=== PATIENT | female | born 1945 | race Caucasian/White ===

== ENCOUNTER 2017-12-10 08:32 | Day surgery (SDC) | payer MEDICARE, OTHER ==
[~2017-12-10 08:32] MED LIST: Dexamethasone 4 MG/ML SDV ONE; Lactated Ringers 0 ML ONE; Lidocaine 1% 0 ML ONE; Lidocaine 1%/Sod Bicarbonate in NS 8.4% 1 ML Syringe IDERM PRN; Midazolam 1 MG/ML 2 ML SDV ONE; Ondansetron 4 MG/2 ML SDV ONE; Propofol 200 MG/20 ML SDV ONE; Rocuronium 50 MG/5 ML Vial ONE; Sodium Chloride 0.9% 10 ML Syringe FLUSH PRN; ceFAZolin 1 GM Vial ONE; fentaNYL 250 MCG/5 ML SDV ONE
[2017-12-10] MEDS: Lactated Ringers 1,000 ML IV SCH ×2 (09:15→12:53)
--- NOTE | 2017-12-10 09:27 | PCM.PREANE ---
Preanesthetic Assessment - Anesthesia/Transfusion/Family Hx Anesthesia History: Prior Anesthesia Without Reaction Family History of Anesthesia Reaction: No Transfusion History: No Prior Transfusion(s) - Review of Systems General: No Symptoms Pulmonary: No Symptoms Cardiovascular: No Symptoms Gastrointestinal: No Symptoms Neurological: No Symptoms Other: Reports: None - Physical Assessment NPO Status Date: 12/09/17 NPO Status Time: 00:00 Pulse: 58 O2 Sat by Pulse Oximetry: 95 Respiratory Rate: 16 Blood Pressure: 152/58 Temperature: 36.9 C Height: 1.57 m Weight: 72.439 kg ASA Class: 2 Mental Status: Alert & Oriented x3 Dentition: Reports: Dentures (top) Thyro-Mental Finger Breadths: 3 Mouth Opening Finger Breadths: 3 ROM/Head Extension: Full Lungs: Clear to Auscultation, Normal Respiratory Effort Cardiovascular: Regular Rate, Regular Rhythm, No Murmurs - Lab Values: Laboratory Last Values WBC 6.09 K/mm3 (3.98-10.04) 12/09/17 10:24 RBC 4.81 M/mm3 (3.98-5.22) 12/09/17 10:24 Hgb 14.3 gm/L (11.2-15.7) 12/09/17 10:24 Hct 43.0 % (34.1-44.9) 12/09/17 10:24 MCV 89.4 fl (79.4-94.8) 12/09/17 10:24 MCH 29.7 pg (25.6-32.2) 12/09/17 10:24 MCHC 33.3 g/dl (32.2-35.5) 12/09/17 10:24 RDW Std Deviation 46.0 fL (36.4-46.3) 12/09/17 10:24 Plt Count 245 K/mm3 (182-369) 12/09/17 10:24 MPV 10.6 fl (9.4-12.3) 12/09/17 10:24 Neut % (Auto) 53.4 % (34.0-71.1) 12/09/17 10:24 Lymph % (Auto) 33.5 % (19.3-51.7) 12/09/17 10:24 [place] % (Auto) 10.2 % (4.7-12.5) 12/09/17 10:24 Eos % (Auto) 2.0 (0.7-5.8) 12/09/17 10:24 Baso % (Auto) 0.7 % (0.1-1.2) 12/09/17 10:24 Neut # (Auto) 3.26 K/mm3 (1.56-6.13) 12/09/17 10:24 Lymph # (Auto) 2.04 K/mm3 (1.18-3.74) 12/09/17 10:24 [place] # (Auto) 0.62 K/mm3 (0.24-0.36) H 12/09/17 10:24 Eos # (Auto) 0.12 K/mm3 (0.04-0.36) 12/09/17 10:24 Baso # (Auto) 0.04 K/mm3 (0.01-0.08) 12/09/17 10:24 Sodium 139 mEq/L (136-145) 12/09/17 10:24 Potassium 3.8 mEq/L (3.5-5.1) 12/09/17 10:24 Chloride 102 mEq/L (98-107) 12/09/17 10:24 Carbon Dioxide 30 mEq/L (21-32) 12/09/17 10:24 Anion Gap 10.8 (5-15) 12/09/17 10:24 BUN 21 mg/dL (7-18) H 12/09/17 10:24 Creatinine 1.1 mg/dL (0.55-1.02) H 12/09/17 10:24 Est Cr Clr Drug Dosing TNP 12/09/17 10:24 Estimated GFR (MDRD) 49 mL/min (>60) 12/09/17 10:24 BUN/Creatinine Ratio 19.1 (14-18) H 12/09/17 10:24 Glucose 102 mg/dL (83-115) 12/09/17 10:24 Calcium 9.6 mg/dL (8.5-10.1) 12/09/17 10:24 Total Bilirubin 0.6 mg/dL (0.2-1.0) 12/09/17 10:24 AST 22 U/L (15-37) 12/09/17 10:24 ALT 25 U/L (14-59) 12/09/17 10:24 Alkaline Phosphatase 93 U/L (46-116) 12/09/17 10:24 Total Protein 7.9 g/dl (6.4-8.2) 12/09/17 10:24 Albumin 3.9 g/dl (3.4-5.0) 12/09/17 10:24 Globulin 4.0 gm/dL 12/09/17 10:24 Albumin/Globulin Ratio 1.0 (1-2) 12/09/17 10:24 Urine Color Yellow (Yellow) 12/09/17 10:24 Urine Appearance Clear (Clear) 12/09/17 10:24 Urine pH 6.0 (5.0-8.0) 12/09/17 10:24 Ur Specific Hydes > or = 1.030 (1.005-1.030) 12/09/17 10:24 Urine Protein Negative (Negative) 12/09/17 10:24 Urine Glucose (UA) Negative (Negative) 12/09/17 10:24 Urine Ketones Negative (Negative) 12/09/17 10:24 Urine Occult Blood 1+ (Negative) H 12/09/17 10:24 Urine Nitrite Positive (Negative) H 12/09/17 10:24 Urine Bilirubin Negative (Negative) 12/09/17 10:24 Urine Urobilinogen 0.2 (0.2-1.0) 12/09/17 10:24 Ur Leukocyte Esterase Negative (Negative) 12/09/17 10:24 Ur Random Creatinine 135.8 mg/dL (30.0-125.0) H 12/09/17 10:24 Blood Type A NEGATIVE 12/09/17 10:24 Gel Antibody Screen Negative 12/09/17 10:24 - Imaging/EKG Impressions: on chart NSR with PVC's - Blood Blood Available: Yes Product(s) Available: PRBC - Acknowledgements Anesthesia Type Planned: General Anesthesia Pt an Appropriate Candidate for the Planned Anesthesia: Yes Alternatives and Risks of Anesthesia Discussed w Pt/Guardian: Yes Pt/Guardian Understands and Agrees with Anesthesia Plan: Yes PreAnesthesia Questionnaire - SUBSTANCE USE Smoking Status *Q: Former Smoker Tobacco Use Within Last Twelve Months: No Second Hand Smoke Exposure: No Days Per Week of Alcohol Use: 1 Number of Drinks Per Day: 0 Total Drinks Per Week: 0 Recreational Drug Use History: No - CURRENT (IN HOUSE) MEDS Current Meds: Current Medications Lactated Ringer's (Ringers, Lactated) 1,000 mls @ 125 mls/hr IV ASDIRECTED SAMINA Lidocaine/Sodium Bicarbonate (Buffered Lidocaine 1% In Ns 8.4%) 0.25 ml IDERM ONETIME PRN PRN Reason: Prior to IV Start Sodium Chloride (Saline Flush) 10 ml FLUSH ASDIRECTED PRN PRN Reason: Keep Vein Open Discontinued Medications Cefazolin Sodium (Ancef) Confirm Administered Dose 2 gm .ROUTE .STK-MED ONE Stop: 12/10/17 07:34 Dexamethasone (Dexamethasone) Confirm Administered Dose 4 mg .ROUTE .STK-MED ONE Stop: 12/10/17 07:34 Fentanyl (Sublimaze) Confirm Administered Dose 250 mcg .ROUTE .STK-MED ONE Stop: 12/10/17 07:34 Lactated Ringer's (Ringers, Lactated) Confirm Administered Dose 1,000 mls @ as directed .ROUTE .STK-MED ONE Stop: 12/10/17 07:34 Lidocaine HCl (Xylocaine-Mpf 1%) Confirm Administered Dose 4 mls @ as directed .ROUTE .STK-MED ONE Stop: 12/10/17 07:34 Midazolam HCl (Versed 1 Mg/Ml) Confirm Administered Dose 2 mg .ROUTE .STK-MED ONE Stop: 12/10/17 07:34 Ondansetron HCl (Zofran) Confirm Administered Dose 4 mg .ROUTE .STK-MED ONE Stop: 12/10/17 07:34 Propofol (Diprivan 20 Ml) Confirm Administered Dose 400 mg .ROUTE .STK-MED ONE Stop: 12/10/17 07:34 Rocuronium [place] (Zemuron) Confirm Administered Dose 50 mg .ROUTE .STK-MED ONE Stop: 12/10/17 07:34
[2017-12-10] MEDS ORDERED: Ondansetron 4 MG/2 ML SDV ONE (09:49)
[2017-12-10] MEDS ORDERED: Rocuronium 50 MG/5 ML Vial ONE (09:49)
[2017-12-10] MEDS ORDERED: Propofol 200 MG/20 ML SDV ONE (09:49)
[2017-12-10] MEDS ORDERED: Ketorolac 30 MG/ML SDV ONE (09:50)
[2017-12-10] MEDS ORDERED: Lidocaine 1% 4 ML ONE (09:50)
[2017-12-10] MEDS ORDERED: fentaNYL 250 MCG/5 ML SDV ONE (09:50)
[2017-12-10] MEDS ORDERED: Dexamethasone 4 MG/ML 5 ML MDV ONE (09:51)
[2017-12-10] MEDS ORDERED: diphenhydrAMINE 50 MG/ML SDV ONE (09:51)
[2017-12-10] MEDS ORDERED: ceFAZolin 1 GM Vial ONE (09:56)
[2017-12-10] MEDS ORDERED: Sodium Chloride 0.9% 50 ML SDV ONE (10:49)
[2017-12-10] MEDS ORDERED: Lidocaine 1% with EPINEPHrine 1:100,000 20 ML MDV ONE (10:49)
[2017-12-10] MEDS ORDERED: HYDROmorphone 0.5 MG/0.5 ML Syringe ONE ×2 (11:58)
[2017-12-10] MEDS ORDERED: Acetaminophen/oxyCODONE 325-5 MG Tab PO PRN (12:29)
[2017-12-10] MEDS ORDERED: Ondansetron 4 MG/2 ML SDV IVPUSH PRN (12:29)
[2017-12-10] MEDS ORDERED: Ketorolac 30 MG/ML SDV IVPUSH SCH (12:30)
--- NOTE | 2017-12-10 12:34 | PCM.OPNOTE ---
- General Post-Op/Procedure Note Date of Surgery/Procedure: 12/10/17 Operative Procedure(s): Total vaginal hysterectomy with bilateral salpingectomy and right oophorectomy Findings: Grade 3 uterine prolapse. Grade 1 cystocele, grade 1 rectocele. Atrophic streak right ovary. Left ovary not seen.. Postmenopausal appearing fallopian tubes bilaterally. Pre Op Diagnosis: Grade 3 uterine prolapse Post-Op Diagnosis: Same Anesthesia Technique: General ET Tube Other Anesthesia Type: Lidocaine quarter percent with [id number] mL total Primary Surgeon: Zheng Gimenez Secondary Surgeon: Tony Wilkinson Anesthesia Provider: Buddy Buenrostro Street Cleaner: Regina Xiong Reason Street Cleaner Was Necessary: Retraction, assistance, patient safety, quality of care. Role of Street Cleaner: Same Fluid Replacement, Intraop: 1,500 EBL in mLs: 10 Complications: None Condition: Good Free Text/Narrative:: Surgery duration: 26 minutes Procedure: The patient was placed in supine position on the operating table. General endotracheal anesthesia was accomplished. After positioning, and adequate prep and drape, the procedure was then performed. Sterile speculum was placed in the vagina and cervix was visualized. Cervix was injected with lidocaine quarter percent with [id number] mL used. A full circumference incision was made in the cervical epithelium. The bladder was pushed well back off cervix. Posterior cul-de-sac was then entered sharply without problems. Left uterosacral was crossclamped with a Enseal vessel closure system. The left uterosacral and then the right uterosacral ligament pedicles were developed using the Enseal system. The anterior cul-de-sac was then entered without problems and the uterine vasculature, cardinal ligament and broad ligament then developed using Enseal vessel closure system. The uterus was inverted at this time and upper broad ligament fallopian tube pedicles were crossclamped with Zheng clamps. Specimen was totally removed. Both these pedicles were then secured left 1 with a with a Zheng stitch of #1 Vicryl and right 1 with Enseal vessel closure system.. Left and right fallopian tube was normal in appearance.. Using Enseal vessel closure system each of the tubes was then removed and sent with the specimen. The Enseal vessel closure system was used to remove the right ovary. Left ovary was not visualized. The patient was found to be hemostatically intact at this time. Vaginal cuff was then closed from right to left side with a running locked suture of 0 Monocryl. Patient was returned to supine position and awakened from general endotracheal anesthesia. She tolerated the procedure was then left the operating room in satisfactory condition.
[2017-12-10] MEDS ORDERED: fentaNYL 100 MCG/2 ML SDV IVPUSH PRN (12:50)
[2017-12-10] MEDS ORDERED: HYDROmorphone 0.5 MG/0.5 ML Syringe IVPUSH PRN (12:50)
--- NOTE | 2017-12-10 12:52 | PCM.POSTAN ---
POST ANESTHESIA ASSESSMENT - MENTAL STATUS Mental Status: Alert, Oriented - VITAL SIGNS Pulse Rate: 66 SaO2: 96 Resp Rate: 12 Blood Pressure: 126/54 Temperature: 36.9 C - RESPIRATORY Respiratory Status: Respiratory Rate WNL, Airway Patent, O2 Saturation Stable, Supplemental Oxygen - CARDIOVASCULAR CV Status: Pulse Rate WNL, Blood Pressure Stable - GASTROINTESTINAL GI Status: No Symptoms - PAIN Pain Score: 1 - POST OP HYDRATION Hydration Status: Adequate & Stable - OBSERVATIONS Free Text/Narrative:: no anesthesia complications noted
--- NOTE | 2017-12-10 16:57 | PCM48HPAN ---
Post Anesthesia Note - EVALUATION WITHIN 48HRS OF ANESTHETIC Vital Signs in Normal Range: Yes Patient Participated in Evaluation: Yes Respiratory Function Stable: Yes Airway Patent: Yes Cardiovascular Function Stable: Yes Hydration Status Stable: Yes Pain Control Satisfactory: Yes Nausea and Vomiting Control Satisfactory: Yes Mental Status Recovered: Yes
== END 2017-12-10 15:05 | disposition home or self-care (01) ==
LOC: JD.SDS 08:32
PROVIDERS: ATTEND Obstetrics & Gynecology
DX: N81.3 Complete uterovaginal prolapse (principal); N88.0 Leukoplakia of cervix uteri; E78.00 Pure hypercholesterolemia, unspecified; I10 Essential (primary) hypertension; Z79.82 Long term (current) use of aspirin; Z79.899 Other long term (current) drug therapy; Z87.891 Personal history of nicotine dependence
CPT/HCPCS: 36415; 58262; 80053; 81003; 82570; 85025; 86850; 86900; 86901; A9270; J0690; J1100; J1170; J1200; J1885; J2405; J2704; J3010; J7120; 00944; J2001; J2250

== ENCOUNTER 2019-09-09 11:14 | Emergency (ER) | payer MEDICARE, OTHER ==
[2019-09-09] MEDS ORDERED: Aspirin 81 MG Tab.Chew PO ONE (11:42)
[2019-09-09] MEDS ORDERED: Dextrose 5%-0.9% NaCl 1,000 ML IV SCH (11:45)
--- NOTE | 2019-09-09 11:48 | EDM.PDOC ---
ED HPI GENERAL MEDICAL PROBLEM - General Chief Complaint: Chest Pain Stated Complaint: CHEST PRESSURE Time Seen by Provider: 09/09/19 11:42 Source of Information: Reports: Patient History Limitations: Reports: No Limitations - History of Present Illness INITIAL COMMENTS - FREE TEXT/NARRATIVE: 74-year-old female presents to the ED for evaluation of central chest discomfort that seems to occasionally radiate up into the anterior neck and perhaps through to her mid back between the shoulder blades. She noticed this first yesterday afternoon and it seemed to persist through the night and is still present this morning. Burping seems to help relieve the discomfort. She does not usually suffer from heartburn or have to take Tums or Rolaids although she has had reflux in the past. She has no known heart disease. She is a never smoker. She has known hypercholesterolemia and is on simvastatin 40 mg once daily. Lisinopril 40 mg once daily and hydrochlorothiazide 25 mg once daily she does have hypertension controlled with carvedilol 6.25 mg twice daily. Pressure discomfort is not worse on exertion or walking. She does not think there is any problems swallowing this morning. But she has not had much to eat yet. Onset: Gradual Onset Date: 09/08/19 Onset Time: 15:00 Duration: Hour(s):, Constant, Recurring Location: Reports: Chest (Chest pressure) Quality: Reports: Pressure ( discomfort.). Denies: Burning, Sharp, Stabbing Severity: Mild Improves with: Reports: None Worsens with: Reports: None Context: Denies: Activity, Exercise, Lifting, Sick Contact, Trauma, Other Associated Symptoms: Reports: No Other Symptoms, Chest Pain (Central chest discomfort). Denies: Confusion, Cough, cough w sputum, Diaphoresis, Fever/Chills, Headaches, Loss of Appetite, Malaise, Nausea/Vomiting, Rash, Seizure, Shortness of Breath, Syncope, Weakness Treatments DIRECTOR OF SECURITY: Reports: Other (see below) (She tried some Pepto-Bismol with no relief.) Mid-Sternal Chest Pain Score (Numeric/FACES): 4 - Related Data Allergies Allergy/AdvReac Type Severity Reaction Status Date / Time No Known Allergies Allergy Verified 12/10/17 09:36 Home Meds: Home Meds Lutein/Minerals/Vit A,C & E [Ocuvite] 1 tab PO DAILY 09/09/19 [History] [place]-3/DHA/Epa/Fish Oil [Fish Oil 500 MG Softgel] 1 each PO DAILY 09/09/19 [History] Simvastatin [Zocor] 20 mg PO BEDTIME 09/09/19 [History] Ubidecarenone [Co Q-10] 200 mg PO DAILY 09/09/19 [History] carvediloL [Carvedilol] 6.25 mg PO BID 09/09/19 [History] hydroCHLOROthiazide [Hydrochlorothiazide] 25 mg PO DAILY 09/09/19 [History] lisinopriL [Lisinopril] 40 mg PO DAILY 09/09/19 [History] Past Medical History HEENT History: Reports: Impaired Vision, Other (See Below) Other HEENT History: Tonsil lesion, wears glasses, upper denture Cardiovascular History: Reports: High Cholesterol, Hypertension Respiratory History: Reports: None Gastrointestinal History: Reports: None Genitourinary History: Reports: Renal Calculus 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: Other STOKER INSTALLER History: Vaginal delivery x2 Musculoskeletal History: Reports: Other (See Below) Other Musculoskeletal History: Left wrist ganglion cyst Neurological History: Reports: None Psychiatric History: Reports: None Endocrine/Metabolic History: Reports: None Hematologic History: Reports: None Immunologic History: Reports: None Oncologic (Cancer) History: Reports: None Other Dermatologic History: Seborrheic keratoses, skin atrophy - Infectious Disease History Infectious Disease History: Reports: Chicken Pox, Measles, Pertussis (Whooping Cough) - Past Surgical History Head Surgeries/Procedures: Reports: None HEENT Surgical History: Reports: None Cardiovascular Surgical History: Reports: None Respiratory Surgical History: Reports: None GI Surgical History: Reports: Colonoscopy, Polypectomy Female Surgical History: Reports: Hysterectomy (Vaginal hysterectomy with BSO with laparoscopic assist.), Lithotripsy/ESWL Endocrine Surgical History: Reports: None Neurological Surgical History: Reports: None Musculoskeletal Surgical History: Reports: Ganglion Cyst Oncologic Surgical History: Reports: None Dermatological Surgical History: Reports: None Social & Family History - Family History Family Medical History: Noncontributory - Tobacco Use Smoking Status *Q: Never Smoker Second Hand Smoke Exposure: No - Caffeine Use Caffeine Use: Reports: Coffee - Living Situation & Occupation Living situation: Reports: Occupation: Retired ED ROS GENERAL - Review of Systems Review Of Systems: See Below Constitutional: Denies: Fever, Chills, Malaise, Weakness, Fatigue, Decreased Appetite, Weight Loss HEENT: Reports: Glasses Respiratory: Denies: Shortness of Breath, Wheezing, Pleuritic Chest Pain Cardiovascular: Reports: Chest Pain, Blood Pressure Problem (Central chest pressure heaviness since yesterday afternoon. She describes it as being very mild but persistent. Hypertension which appears to be well controlled.). Denies: Claudication, Dyspnea on Exertion, Edema, Lightheadedness, Orthopnea, Palpitations Endocrine: Reports: No Symptoms GI/Abdominal: Reports: No Symptoms : Reports: Frequency, Incontinence (She feels that she has developed a prolapsed bladder and is often incontinent from stress) Musculoskeletal: Reports: Back Pain, Joint Pain (Occasional problems with mild back pain occasional pain knees and hips and neck.) Skin: Reports: No Symptoms Neurological: Reports: No Symptoms Psychiatric: Reports: No Symptoms Hematologic/Lymphatic: Reports: No Symptoms Immunologic: Reports: No Symptoms ED EXAM, GENERAL - Physical Exam Exam: See Below Exam Limited By: No Limitations General Appearance: Alert, WD/WN, No Apparent Distress, Other (Temperature is 36.3 heart rate is 78 and sinus respiratory is 20 with O2 sats of 97%. BP 132/50. It later came down to 116/60) Eye Exam: Bilateral Eye: Normal Inspection, PERRL Throat/Mouth: Normal Inspection, Normal Lips, Normal Teeth, Normal Oropharynx Head: Atraumatic, Normocephalic Neck: Normal Inspection, Supple, Non-Tender, Full Range of Motion, Tender Lateral (Mild tender bilaterally.). No: Carotid Bruit, Lymphadenopathy (L), Lymphadenopathy (R) Respiratory/Chest: No Respiratory Distress, Lungs Clear, Normal Breath Sounds, No Accessory Muscle Use, Other (Wall is diffusely tender to palpation per particularly in the midclavicular line bilaterally from ribs 3,4,5 and 6. Pain this is most likely due to osteoporosis..) Cardiovascular: Normal Peripheral Pulses, Regular Rate, Rhythm, No Edema, No Gallop, No Murmur, No Rub Peripheral Pulses: 2+: Carotid (L), Carotid (R), Posterior Tibial (L), Posterior Tibial (R), Dorsalis Pedis (L), Dorsalis Pedis (R) GI/Abdominal: Normal Bowel Sounds, Soft, Non-Tender, No Organomegaly, No Distention, No Abnormal Bruit, No Mass, Pelvis Stable Back Exam: Normal Inspection, Full Range of Motion. No: CVA Tenderness (L), CVA Tenderness (R) Extremities: Normal Inspection, Normal Range of Motion, Non-Tender, No Pedal Edema, Other Neurological: Alert, Oriented (Calves are nontender and not swollen with no clinical evidence of DVT.), CN II-XII Intact, Normal Cognition, Normal Gait Psychiatric: Normal Affect, Normal Mood Skin Exam: Warm, Dry, Intact, Normal Color, No Rash EKG INTERPRETATION EKG Date: 09/09/19 Time: 11:21 Rhythm: NSR Rate (Beats/Min): 72 (Occasional PVCs) [place]: LAD-Left [place] Deviation (Minimal left axis deviation at -5 degrees) P-Wave: Enlarged (Consider left atrial hypertrophy) QRS: Other (Initial poor R wave progression.) ST-T: Other (T wave flattening aVL nonspecific finding.) QT: Prolonged (Mildly prolonged) EKG Interpretation Comments: Abnormal ECG. No signs of ischemia. Course - Vital Signs Last Recorded V/S: Last Vital Signs Temp 36.3 C 09/09/19 11:19 Pulse 78 09/09/19 11:19 Resp 20 09/09/19 11:19 BP 132/50 L 09/09/19 11:19 Pulse Ox 97 09/09/19 11:19 - Orders/Labs/Meds Orders: Active Orders 24 hr Category Date Time Status EKG 12 Lead [EKG Documentation Completion] [RC] ROUTINE Care 09/09/19 11:21 Active URINALYSIS W/MICROSCOPIC [UA W/MICROSCOPIC] [URIN] Stat Lab 09/09/19 11:44 Ordered Dextrose 5%-0.9% NaCl [Dextrose 5%-Normal Saline] 1,000 Med 09/09/19 11:45 Active ml IV ASDIRECTED Medication Orders Dextrose/Sodium Chloride (Dextrose 5%-Normal Saline) 1,000 mls @ 150 mls/hr IV ASDIRECTED SAMINA Last Admin: 09/09/19 11:54 Dose: 150 mls/hr Documented by: KLARISSA Labs: Laboratory Tests 09/09/19 09/09/19 09/09/19 Range/Units 11:20 11:20 11:20 WBC 9.12 (3.98-10.04) K/mm3 RBC 4.58 (3.98-5.22) M/mm3 Hgb 13.6 (11.2-15.7) gm/dl Hct 41.3 (34.1-44.9) % MCV 90.2 (79.4-94.8) fl MCH 29.7 (25.6-32.2) pg MCHC 32.9 (32.2-35.5) g/dl RDW Std Deviation 47.3 H (36.4-46.3) fL Plt Count 243 (182-369) K/mm3 MPV 10.6 (9.4-12.3) fl Neut % (Auto) 65.0 (34.0-71.1) % Lymph % (Auto) 23.4 (19.3-51.7) % [place] % (Auto) 10.5 (4.7-12.5) % Eos % (Auto) 0.7 (0.7-5.8) Baso % (Auto) 0.3 (0.1-1.2) % Neut # (Auto) 5.93 (1.56-6.13) K/mm3 Lymph # (Auto) 2.13 (1.18-3.74) K/mm3 [place] # (Auto) 0.96 H (0.24-0.36) K/mm3 Eos # (Auto) 0.06 (0.04-0.36) K/mm3 Baso # (Auto) 0.03 (0.01-0.08) K/mm3 PT 11.1 (9.7-12.0) SECONDS INR 1.02 APTT 30 (22-31) SECONDS D-Dimer, Quantitative (0.19-0.50) mg/L Sodium 142 (136-145) mEq/L Potassium 4.0 (3.5-5.1) mEq/L Chloride 104 (98-107) mEq/L Carbon Dioxide 26 (21-32) mEq/L Anion Gap 16.0 H (5-15) BUN 22 H (7-18) mg/dL Creatinine 1.1 H (0.55-1.02) mg/dL Est Cr Clr Drug Dosing 36.02 mL/min Estimated GFR (MDRD) 49 (>60) mL/min BUN/Creatinine Ratio 20.0 H (14-18) Glucose 112 (83-115) mg/dL Calcium 9.4 (8.5-10.1) mg/dL Magnesium 1.9 (1.8-2.4) mg/dl Total Bilirubin 0.8 (0.2-1.0) mg/dL AST 15 (15-37) U/L ALT 19 (14-59) U/L Alkaline Phosphatase 93 (46-116) U/L CK-MB (CK-2) 0.8 (0-3.6) ng/ml Troponin I < 0.017 (0.00-0.056) ng/mL C-Reactive Protein 0.6 (<1.0) mg/dL NT-Pro-B Natriuret Pep (0-125) pg/mL Total Protein 7.4 (6.4-8.2) g/dl Albumin 3.9 (3.4-5.0) g/dl Globulin 3.5 gm/dL Albumin/Globulin Ratio 1.1 (1-2) 09/09/19 09/09/19 Range/Units 11:20 11:20 WBC (3.98-10.04) K/mm3 RBC (3.98-5.22) M/mm3 Hgb (11.2-15.7) gm/dl Hct (34.1-44.9) % MCV (79.4-94.8) fl MCH (25.6-32.2) pg MCHC (32.2-35.5) g/dl RDW Std Deviation (36.4-46.3) fL Plt Count (182-369) K/mm3 MPV (9.4-12.3) fl Neut % (Auto) (34.0-71.1) % Lymph % (Auto) (19.3-51.7) % [place] % (Auto) (4.7-12.5) % Eos % (Auto) (0.7-5.8) Baso % (Auto) (0.1-1.2) % Neut # (Auto) (1.56-6.13) K/mm3 Lymph # (Auto) (1.18-3.74) K/mm3 [place] # (Auto) (0.24-0.36) K/mm3 Eos # (Auto) (0.04-0.36) K/mm3 Baso # (Auto) (0.01-0.08) K/mm3 PT (9.7-12.0) SECONDS INR APTT (22-31) SECONDS D-Dimer, Quantitative 0.46 (0.19-0.50) mg/L Sodium (136-145) mEq/L Potassium (3.5-5.1) mEq/L Chloride (98-107) mEq/L Carbon Dioxide (21-32) mEq/L Anion Gap (5-15) BUN (7-18) mg/dL Creatinine (0.55-1.02) mg/dL Est Cr Clr Drug Dosing mL/min Estimated GFR (MDRD) (>60) mL/min BUN/Creatinine Ratio (14-18) Glucose (83-115) mg/dL Calcium (8.5-10.1) mg/dL Magnesium (1.8-2.4) mg/dl Total Bilirubin (0.2-1.0) mg/dL AST (15-37) U/L ALT (14-59) U/L Alkaline Phosphatase (46-116) U/L CK-MB (CK-2) (0-3.6) ng/ml Troponin I (0.00-0.056) ng/mL C-Reactive Protein (<1.0) mg/dL NT-Pro-B Natriuret Pep 338 H (0-125) pg/mL Total Protein (6.4-8.2) g/dl Albumin (3.4-5.0) g/dl Globulin gm/dL Albumin/Globulin Ratio (1-2) Meds: Medications Generic Name Dose Route Start Last Admin Trade Name Freq PRN Reason Stop Dose Admin Dextrose/Sodium Chloride 1,000 mls @ 150 mls/hr 09/09/19 11:45 09/09/19 11:54 Dextrose 5%-Normal Saline IV 150 mls/hr ASDIRECTED SAMINA Administration Discontinued Medications Generic Name Dose Route Start Last Admin Trade Name Freq PRN Reason Stop Dose Admin Aspirin 324 mg 09/09/19 11:42 09/09/19 11:53 Aspirin PO 09/09/19 11:43 324 mg ONETIME ONE Administration Famotidine 20 mg 09/09/19 12:54 09/09/19 13:12 Pepcid PO 09/09/19 12:55 20 mg ONETIME ONE Administration - Radiology Interpretation Free Text/Narrative:: 74-year-old female presents to the ED with central chest pressure discomfort that she has had off and on basically since 1500 hrs. yesterday. She thought it might be heartburn and has taken some baking soda and some Pepto-Bismol without any relief. She gets very rare heartburn. Burping seems to help the discomfort however. She has significant hypertension with 3 antihypertensive medicines with good control. She is known to have hypercholesterolemia. She is a never smoker. ECG does not show any signs of acute ischemia. Plan: Aspirin 324 mg p.o. IV will be D5 normal saline 150 mils per hour since she has not eaten yet today. Chest x-ray and routine labs to include cardiac markers and d-dimer. Sats were as low as 94% initially but did improve to 97% over time. This was without oxygen supplementation. - Re-Assessments/Exams Free Text/Narrative Re-Assessment/Exam: 09/09/19 12:00: Portable CXR reveals mildly hyperinflated lungs. normal cardiac silhouette. Lungs are clear. 09/09/19 12:38 White blood cell count is 9.12. Auto differential shows 65% neutrophils. Hemoglobin is 13.6 with hematocrit of 41.3. MCV is normal platelet count 243,000. PT is 11.1 with an INR of 1.02. PTT is 30. D-dimer is 0.46. Sodium is 142 with a potassium of 4.0. Chloride is 104 with a bicarb of 26. Anion gap is mildly elevated at 16.0. BUN is 22 with a creatinine of 1.1. GFR is 49. Glucose is 112 with a calcium of 9.4. Magnesium is normal at 1.9. Liver function is normal. CK-MB fraction is 0.8 troponin I is less than 0.017. C-reactive protein is 0.6 BNP interestingly is mildly elevated at 338. Total protein is 7.4 albumin is 3.9. Therefore cardiac problems have essentially been ruled out. Congestive heart failure likely due to prolonged hypertension although it appears to be well controlled at this time. Echocardiogram should be entertained in the future. Suspect today's current discomfort is due to esophageal spasm either due to hiatal hernia or reflux. She also has diffuse chest wall tenderness but most of her discomfort was in the central part of her chest. 09/09/19 12:53 I have discussed the findings with the patient. She has an appointment to see a on Saturday next week at [facility]. Tentatively she can arrange an echocardiogram. Patient was also interested in seeing an ear nose and throat surgeon about a deviated nasal septum. Recommended Dr. Ramirez or Dr. Enrique in [place]. Pepcid 20 mg once daily at bedtime. I am going to give her 1 in the ER now. Departure - Departure Time of Disposition: 12:55 Disposition: Home, Self-Care 01 Reason for Transfer *Q: Other Condition: Fair Clinical Impression: Non-cardiac chest pain, Anterior chest wall pain, Chronic hypertension, Mild congestive heart failure Instructions: Nonspecific Chest Pain, Adult Referrals: Yanira Godfrey EXECUTIVE CHAIRMAN [Primary Care Provider] - Forms: ED Department Discharge Additional Instructions: Evaluation in the emergency room today in regards to central chest discomfort since yesterday mid afternoon that seems to persist throughout the night and this morning is still present. He therefore came into the ED to rule out any heart related illness and none was found. ECG does not show any signs of heart attack or ischemia. Chest x-ray is within normal limits. Lab work reveals very minimal congestive heart failure and for this reason I would recommend having a follow-up echocardiogram done at some point in time. This is likely from having high blood pressure for many years. The exact cause of your chest discomfort is unclear at this time although it is most likely due to occult or hidden reflux disease that occurs during the night when we are sleeping. A small amount of acid that leaks up into the food pipe during the night can make the food pipe spasm and hurt for up to 10 days after 1 bad night. I would suggest Pepcid 20 mg every night at bedtime for the next 2 weeks and then stop and see what happens. Otherwise no changes in blood pressure medications as her blood pressure is well controlled with current treatment plan. You also asked about ear nose and throat surgeons in [place] and I would recommend Dr. Ramirez or Dr. Gaming. Follow-up with your cardiology PA on Saturday as planned. Sepsis Event Note (ED) - Evaluation Sepsis Screening Result: No Definite Risk - Focused Exam Vital Signs: Vital Signs Temp Pulse Resp BP Pulse Ox 09/09/19 11:19 36.3 C 78 20 132/50 L 97 - My Orders Last 24 Hours: My Active Orders 09/09/19 11:21 EKG 12 Lead [EKG Documentation Completion] [RC] ROUTINE 09/09/19 11:44 URINALYSIS W/MICROSCOPIC [UA W/MICROSCOPIC] [URIN] Stat 09/09/19 11:45 Dextrose 5%-0.9% NaCl [Dextrose 5%-Normal Saline] 1,000 ml IV ASDIRECTED - Assessment/Plan Last 24 Hours: My Active Orders 09/09/19 11:21 EKG 12 Lead [EKG Documentation Completion] [RC] ROUTINE 09/09/19 11:44 URINALYSIS W/MICROSCOPIC [UA W/MICROSCOPIC] [URIN] Stat 09/09/19 11:45 Dextrose 5%-0.9% NaCl [Dextrose 5%-Normal Saline] 1,000 ml IV ASDIRECTED
--- NOTE | 2019-09-09 12:30 | CR ---
Chest: Portable view of the chest was obtained. Comparison: No previous chest imaging. Findings: Heart size and mediastinum are normal. Lungs are clear with no acute parenchymal change. Bony structures are grossly intact. Impression: 1. Nothing acute is seen on portable chest x-ray. Diagnostic code #1 This report was dictated in MDT
[2019-09-09] MEDS ORDERED: Famotidine 20 MG Tab PO ONE (12:54)
== END 2019-09-09 13:15 | disposition home or self-care (01) ==
LOC: JD.ED 11:14
DX: I11.0 Hypertensive heart disease with heart failure (principal); I50.9 Heart failure, unspecified; E78.00 Pure hypercholesterolemia, unspecified; Z79.899 Other long term (current) drug therapy
CPT/HCPCS: 36415; 71045; 80053; 82553; 83735; 83880; 84484; 85025; 85379; 85610; 85730; 86140; 93005; 96360; 99285; A9270; J7042

== ENCOUNTER 2020-09-13 09:34 | Day surgery (SDC) | payer MEDICARE, OTHER ==
[~2020-09-13 09:34] MED LIST changes: +Dexamethasone 4 MG/ML 5 ML MDV ONE; -Dexamethasone 4 MG/ML SDV ONE; +HYDROmorphone 0.5 MG/0.5 ML Syringe ONE; -Lactated Ringers 0 ML ONE; +Lactated Ringers 1,000 ML IV SCH; +Lactated Ringers 1,000 ML ONE; -Lidocaine 1% 0 ML ONE; +Lidocaine 1% 4 ML ONE; -Midazolam 1 MG/ML 2 ML SDV ONE
[2020-09-13] MEDS ORDERED: Lidocaine 1% with EPINEPHrine 1:100,000 10 ML MDV ONE (10:00)
[2020-09-13] MEDS ORDERED: Sodium Chloride 0.9% 50 ML SDV ONE (10:00)
--- NOTE | 2020-09-13 10:42 | PCM.PREANE ---
Preanesthetic Assessment - Procedure Proposed Procedure: anterior Vaginal repair - Anesthesia/Transfusion/Family Hx Anesthesia History: Prior Anesthesia Without Reaction Family History of Anesthesia Reaction: No Transfusion History: No Prior Transfusion(s) - Review of Systems General: No Symptoms Pulmonary: No Symptoms, Other (nose is chronicly obstructed) Cardiovascular: No Symptoms Gastrointestinal: No Symptoms Neurological: No Symptoms Other: Reports: Sinus Problem (chronic stuffed nose) - Physical Assessment NPO Status Date: 09/12/20 NPO Status Time: 00:00 Height: 1.57 m Weight: 58.6 kg ASA Class: 3 Mental Status: Alert & Oriented x3 Airway Class: Mallampati = 1 Dentition: Reports: Dentures (top), Missing Tooth/Teeth (bottom) Thyro-Mental Finger Breadths: 3 Mouth Opening Finger Breadths: 3 ROM/Head Extension: Limited/Partial Lungs: Clear to Auscultation, Normal Respiratory Effort Cardiovascular: Regular Rate, Regular Rhythm, Murmurs - Imaging/EKG Impressions: EKG 09/04/20 SR rate72 with PVC Stress test neg nonrheumatic aortic valve insufficiency - Allergies Allergies/Adverse Reactions: Allergies Allergy/AdvReac Type Severity Reaction Status Date / Time No Known Allergies Allergy Verified 09/12/20 10:40 - Anesthesia Plan Pre-Op Medication Ordered: Beta Reina Beta Reina: Carvedilol Med Last Dose Date: 09/13/20 Med Last Dose Time: 07:00 - Acknowledgements Anesthesia Type Planned: General Anesthesia Pt an Appropriate Candidate for the Planned Anesthesia: Yes Alternatives and Risks of Anesthesia Discussed w Pt/Guardian: Yes Pt/Guardian Understands and Agrees with Anesthesia Plan: Yes PreAnesthesia Questionnaire HEENT History: Reports: Impaired Vision, Other (See Below) Other HEENT History: Tonsil lesion, wears glasses, upper denture Cardiovascular History: Reports: High Cholesterol, Hypertension Respiratory History: Reports: None Gastrointestinal History: Genitourinary History: Reports: Renal Calculus, Other (See Below) Other Genitourinary History: abnormal urine, cystocele, pelvic prolapse, rectocele, kidney stones 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: Other OB/BYN History: Vaginal delivery x2 Musculoskeletal History: Reports: Other (See Below) Other Musculoskeletal History: Left wrist ganglion cyst Neurological History: Reports: None Psychiatric History: Reports: None Endocrine/Metabolic History: Reports: None Hematologic History: Reports: None Immunologic History: Reports: None Oncologic (Cancer) History: Reports: None Other Dermatologic History: Seborrheic keratoses, skin atrophy - Infectious Disease History Infectious Disease History: Reports: Chicken Pox, Measles, Pertussis (Whooping Cough) - Past Surgical History Head Surgeries/Procedures: Reports: None HEENT Surgical History: Reports: None Cardiovascular Surgical History: Reports: None Respiratory Surgical History: Reports: None GI Surgical History: Reports: Colonoscopy, Polypectomy Female Surgical History: Reports: Hysterectomy, Lithotripsy/ESWL Male Surgical History: Reports: None Endocrine Surgical History: Reports: None Neurological Surgical History: Reports: None Musculoskeletal Surgical History: Reports: Ganglion Cyst Oncologic Surgical History: Reports: None Dermatological Surgical History: Reports: None - SUBSTANCE USE Tobacco Use Status *Q: Never Tobacco User Tobacco Use Within Last Twelve Months: No Second Hand Smoke Exposure: No Days Per Week of Alcohol Use: 1 Number of Drinks Per Day: 0 Total Drinks Per Week: 0 Recreational Drug Use History: No - HOME MEDS Home Medications: Home Meds [place]-3/DHA/Epa/Fish Oil [Fish Oil 500 MG Softgel] 1 each PO DAILY 09/09/19 [History] Simvastatin [Zocor] 20 mg PO BEDTIME 09/09/19 [History] Ubidecarenone [Co Q-10] 200 mg PO DAILY 09/09/19 [History] carvediloL [Carvedilol] 6.25 mg PO BID 09/09/19 [History] hydroCHLOROthiazide [Hydrochlorothiazide] 25 mg PO DAILY 09/09/19 [History] lisinopriL [Lisinopril] 40 mg PO DAILY 09/09/19 [History] Cholecalciferol (Vitamin D3) [Vitamin D3] 1,000 unit PO DAILY 09/12/20 [History] - CURRENT (IN HOUSE) MEDS Current Meds: Current Medications Lactated Ringer's (Ringers, Lactated) 1,000 mls @ 125 mls/hr IV ASDIRECTED SAMINA Stop: 09/13/20 23:00 Lidocaine/Sodium Bicarbonate (Lidocaine 1%/Sod Bicarbonate In Ns 8.4% 1 Ml Syringe) 0.25 ml IDERM ONETIME PRN PRN Reason: Prior to IV Start Stop: 09/13/20 18:00 Sodium Chloride (Sodium Chloride 0.9% 10 Ml Syringe) 10 ml FLUSH ASDIRECTED PRN PRN Reason: Keep Vein Open Stop: 09/13/20 18:00 Discontinued Medications Cefazolin Sodium (Cefazolin 1 Gm Vial) Confirm Administered Dose 2 gm .ROUTE .STK-MED ONE Stop: 09/13/20 08:42 Dexamethasone (Dexamethasone 4 Mg/Ml 5 Ml Mdv) Confirm Administered Dose 20 mg .ROUTE .ST-MED ONE Stop: 09/13/20 08:42 Fentanyl (Fentanyl 250 Mcg/5 Ml Sdv) Confirm Administered Dose 250 mcg .ROUTE .ST-MED ONE Stop: 09/13/20 08:43 Hydromorphone HCl (Hydromorphone 0.5 Mg/0.5 Ml Syringe) Confirm Administered Dose 0.5 mg .ROUTE .ST-MED ONE Stop: 09/13/20 08:43 Lidocaine HCl (Xylocaine-Mpf 1%) Confirm Administered Dose 4 mls @ as directed .ROUTE .ST-MED ONE Stop: 09/13/20 08:42 Lactated Ringer's (Ringers, Lactated) Confirm Administered Dose 1,000 mls @ as directed .ROUTE .ST-MED ONE Stop: 09/13/20 08:42 Lidocaine/Epinephrine (Lidocaine 1% With Epinephrine 1:100,000 10 Ml Mdv) Confirm Administered Dose 10 ml .ROUTE .ST-MED ONE Stop: 09/13/20 10:01 Miscellaneous Medication (Phenylephrine Hcl In 0.9% Nacl 1 Mg/10 Ml Syringe) Confirm Administered Dose 1 mg .ROUTE .ST-MED ONE Stop: 09/13/20 08:42 Ondansetron HCl (Ondansetron 4 Mg/2 Ml Sdv) Confirm Administered Dose 4 mg .ROUTE .ST-MED ONE Stop: 09/13/20 08:42 Propofol (Propofol 200 Mg/20 Ml Sdv) Confirm Administered Dose 200 mg .ROUTE .STK-MED ONE Stop: 09/13/20 08:43 Rocuronium [place] (Rocuronium 50 Mg/5 Ml Vial) Confirm Administered Dose 50 mg .ROUTE .STK-MED ONE Stop: 09/13/20 08:42 Sodium Chloride (Sodium Chloride 0.9% 50 Ml Sdv) Confirm Administered Dose 50 ml .ROUTE .STK-MED ONE Stop: 09/13/20 10:01
[2020-09-13] MEDS ORDERED: ePHEDrine 50 MG/ML SDV ONE (11:57)
[2020-09-13] MEDS ORDERED: Glycopyrrolate 0.2 MG/ML SDV ONE (12:24)
[2020-09-13] MEDS ORDERED: Ibuprofen 600 MG Tab PO PRN (12:32)
[2020-09-13] MEDS ORDERED: Ondansetron 4 MG/2 ML SDV IVPUSH PRN ×2 (12:32→13:11)
--- NOTE | 2020-09-13 12:37 | PCM.OPNOTE ---
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 Fluid Replacement, Intraop: 1,400 EBL in mLs: 5 Complications: None Condition: Good Free Text/Narrative:: Surgery duration: 38 minutes Procedure: The patient is taken to the operating room and placed in a supine position on the operating table. She received 2 g of Ancef preoperatively for infection prophylaxis. She had sequential compression stockings in place for DVT prophylaxis. Patient was administered general endotracheal anesthesia. She was placed in a dorsal lithotomy position and prepped and draped in the usual fashion. Anterior vaginal repair was performed. 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 Weighted speculum was placed in the vagina and the uppermost portion of the cystocele was identified. Two Allis clamps was placed at that uppermost point at a position approximately 1-1/2 cm lateral to the midline A second Allis clamp was placed approximately 2 cm from the urethral meatus. The areas and infiltrated with lidocaine quarter percent with epinephrine. Approximately 8 mL was used. The 2 lateral Allis clamps were retracted and an epithelial incision was made between the 2 clamps. A midline incision was then made with a Metzenbaum scissors. The overlying epithelium was then dissected off of the underlying vesicovaginal fascia. This all to lateral which when approximately midline was felt to be adequate to reduce the cystocele. When this was done approximately 5 trapezoidal shaped sutures of 0 Monocryl were then placed reapproximating the lateral supportive tissue midline and reducing the rectocele . At this point the excess epithelium bilaterally was removed and the epithelium was closed in a running fashion. At this time sponge, instrument and needle counts were correct. The patient was returned to supine position and was discharged from the operating room in good condition.
--- NOTE | 2020-09-13 12:58 | PCM.POSTAN ---
POST ANESTHESIA ASSESSMENT - MENTAL STATUS Mental Status: Alert - VITAL SIGNS Vital Signs: Last Vital Signs Temp 98.2 F 09/13/20 12:38 Pulse 77 09/13/20 12:45 Resp 14 09/13/20 12:45 BP 126/48 L 09/13/20 12:45 Pulse Ox 96 09/13/20 12:45 - RESPIRATORY Respiratory Status: Respiratory Rate WNL, Airway Patent, O2 Saturation Stable - CARDIOVASCULAR CV Status: Pulse Rate WNL, Blood Pressure Stable - GASTROINTESTINAL GI Status: No Symptoms - PAIN Pain Score: 0 - POST OP HYDRATION Hydration Status: Adequate & Stable
[2020-09-13] MEDS ORDERED: HYDROmorphone 0.5 MG/0.5 ML Syringe IVPUSH PRN (13:11)
[2020-09-13] MEDS ORDERED: fentaNYL 100 MCG/2 ML SDV IVPUSH PRN (13:11)
--- NOTE | 2020-09-13 13:27 | PCM48HPAN ---
Post Anesthesia Note - EVALUATION WITHIN 48HRS OF ANESTHETIC Vital Signs in Normal Range: Yes Patient Participated in Evaluation: Yes Respiratory Function Stable: Yes Airway Patent: Yes Cardiovascular Function Stable: Yes Hydration Status Stable: Yes Pain Control Satisfactory: Yes Nausea and Vomiting Control Satisfactory: Yes Mental Status Recovered: Yes Vital Signs: Last Vital Signs Temp 98.2 F 09/13/20 13:11 Pulse 61 09/13/20 13:14 Resp 15 09/13/20 13:14 BP 120/46 L 09/13/20 13:14 Pulse Ox 98 09/13/20 13:14
== END 2020-09-13 14:07 | disposition home or self-care (01) ==
LOC: JD.SDS 09:34
PROVIDERS: ATTEND Obstetrics & Gynecology
DX: N81.4 Uterovaginal prolapse, unspecified (principal); N81.6 Rectocele; E78.00 Pure hypercholesterolemia, unspecified; I10 Essential (primary) hypertension; N95.2 Postmenopausal atrophic vaginitis; Z79.899 Other long term (current) drug therapy; Z98.890 Other specified postprocedural states; Z87.891 Personal history of nicotine dependence
CPT/HCPCS: 57240; J0690; J1100; J1170; J2405; J2704; J2710; J3010; J3490; J7120; 00942; 99100; J2370